=== PATIENT | female | born 1950 | race Caucasian/White ===

== ENCOUNTER 2017-03-23 10:10 | Emergency (ER) | payer MEDICARE, OTHER ==
[~2017-03-23] VITALS: Ht 162.6 cm; Wt 70.8 kg
--- NOTE | ~2017-03-23 | EKG ---
PATIENT: YVONNE GALINDO UNIT #: [id number] Ventricular Rate: 89 BPM Atrial Rate: 89 BPM P-R Interval: 150 ms QRS Duration: 90 ms Q-T Interval: 428 ms QTC Calculation(Bezet): 520 ms P [place]: 16 degrees Calculated R [place]: 0 degrees Calculated T [place]: -10 degrees Diagnosis Line: Sinus rhythm with occasional Premature ventricular Diagnosis Line: complexes Diagnosis Line: Possible Left atrial enlargement Diagnosis Line: Left ventricular hypertrophy Diagnosis Line: Nonspecific T wave abnormality Diagnosis Line: Prolonged QT Diagnosis Line: Abnormal ECG Diagnosis Line: When compared with ECG of 16-JAN-2016 10:01, Diagnosis Line: Premature ventricular complexes are now Present Diagnosis Line: T wave inversion no longer evident in Inferior Diagnosis Line: leads Diagnosis Line: QT has lengthened Diagnosis Line: Confirmed by DAISHA CARVAJAL MD ([id number]) on Diagnosis Line: 03/26/2017 11:18:16 AM INTERPRETING MD: ALENA SIEGEL
--- NOTE | ~2017-03-23 | CR63 ---
[facility] A Service of [facility] RADIOLOGY TEXT RESULTS PATIENT: YVONNE GALINDO LOCATION: SED : 48 UNIT #: [id number] AGE: [address]: Kacy Thompson MD SEX: F ORDER DR: [id number] [address] [address] [id number] MR#: [id number] Acc #: [id number] NAME: YVONNE GALINDO : 1950 SEX: F STUDY DATE/TIME: 03/23/2017 10:39 UNIT: SED ROOM: STUDY DESCRIPTION: CR Chest 2 View Attending Physician: Kacy Thompson M.D. Ordering Physician: Kacy Thompson M.D. Primary Care Physician: Eddie Dorsey M.D. MEDICAL IMAGING REPORT This report is preliminary unless electronic signature is present. EXAM Two-view chest, 03/23/2017 INDICATION 66-year-old female with cough, difficulty breathing since 11 o'clock last night, tobacco abuse 40 years. TECHNIQUE Two-view chest COMPARISON 01/16/2016 FINDINGS The heart is enlarged. This may reflect interval development of true cardiomegaly or a pericardial effusion. Indistinctness of the interstitium may reflect some very mild vascular congestion. There is no effusion or dense consolidation. There are patchy opacities in the left lung partially obscuring the left heart border also seen on the lateral view suspicious for lingular pneumonia. There is partial obscuration at the right heart border which may also reflect a right middle lobe component as well. Followup to clearing after appropriate therapy is recommended. There is no pneumothorax. IMPRESSION 1. Interval development of cardiomegaly which may represent true cardiomegaly or a pericardial effusion. 2. Probable mild vascular congestion. 3. Opacities in the lingula and perhaps also in the right middle lobe suspicious for pneumonia. Followup to clearing recommended. [facility] A Service [facility] RADIOLOGY TEXT RESULTS PATIENT: YVONNE GALINDO LOCATION: SED : 48 UNIT #: [id number] AGE: [address]: Kacy Thompson MD SEX: F ORDER DR: STAT * RESULT Dictated by... Srinivas Moran M.D. THIS IS AN ELECTRONICALLY VERIFIED REPORT Srinivas Moran M.D. at 03/23/2017 2:52 PM Shady TD: 03/23/2017 11:14 JOB #: [id number] MEDICAL IMAGING REPORT Page 1 of 1
[~2017-03-23 10:10] MED LIST: AMARYL PO; ASPIRIN81 M2 PO; BACTRIM DS TABL1 TA1; BACTRIM DS TABL1 TA2; CIPRO PO; CITRACAL200 MG PO; DICLOFENAC SODI50 MG PO; DIGOX0.25 MG PO; FLEXERIL10 MG PO; GARLIC OIL1 CAP PO; HYDROCODON-ACE1 EAC7 PO; LEVOXYL88 MC1 PO; MEDROL DOSEPAK4 MG PO; METFORMIN HCL500 M1 PO; MOBIC15 MG PO; NORCO1 TAB 10/3 PO; PERCOCET 5-3251 TAB; PRAVACHOL80 MG PO; PREDNISONE PO; ROBAXIN; ROBAXIN500 MG PO; SYNTHROID88 MCG PO
[2017-03-23] MEDS ORDERED: CRESTOR PO (10:17)
[2017-03-23] MEDS ORDERED: LISINOPRIL5 MG PO (10:18)
[2017-03-23 11:50] LABS: BASOPHIL% 0.6 % (0-2.5); DIFF IND NO; EOSINOPHIL# 0.1 X10e3 (0-0.7); EOSINOPHIL% 2.2 % (0.0-7.0); HEMATOCRIT 34.7 % (35.0-45.0); HEMOGLOBIN 11.7 gm/dL (12.0-16.0); LYMPHOCYTE# 1.2 X10e3 (1.0-3.5); LYMPHOCYTE% 18.2 % (17.0-45.0); MEAN CORPUSCULAR HGB CONC 33.7 g/dL (30-36); MEAN PLATELET VOLUME 8.5 FL (6.5-11.5); MONOCYTE# 0.5 X10e3 (0-1.0); MONOCYTE% 7.3 % (3.0-12.0); NEUTROPHIL# 4.6 X10e3 (1.5-7.1); NEUTROPHIL% 71.7 % (40-75); PLATELET COUNT 141 X10e3 (140-420); RED BLOOD COUNT 3.77 X10e (3.90-5.30); RED CELL DISTRIBUTION WIDTH 14.4 % (11.0-15.5); WHITE BLOOD COUNT 6.4 X10e3 (4.0-10.5)
[2017-03-23 12:10] LABS: BUN/CREATININE RATIO 21.81; CALCIUM SERUM 9.2 mg/dL (8.4-10.2); CREATININE SERUM 1.1 mg/dL (0.6-1.4); GLOM FILT RATE Estimated 51.6 mL/min (>60); POTASSIUM 3.6 mmol/L (3.5-5.1)
[2017-03-23] MEDS ORDERED: METFORMIN HCL1000 M1 PO (12:47)
[2017-03-23] MEDS ORDERED: CENTRUM SILVER PO (12:48)
[2017-03-23] MEDS ORDERED: VITAMIN D3400 UNI1 PO (12:49)
[2017-03-24 16:53] LABS: POC - CKMB 21.7 ng/mL (0.0-7.9); POC - TROPONIN 3.12 ng/mL (<=0.05)
[2017-03-24 16:58] LABS: POC - CKMB 16.7 ng/mL (0.0-7.9); POC - TROPONIN 3.64 ng/mL (<=0.05)
== END 2017-03-23 16:42 ==
LOC: SED 10:10
PROVIDERS: Student in an Organized Health Care Education/Training Program
DX: I21.4 Non-ST elevation (NSTEMI) myocardial infarction (principal); J18.9 Pneumonia, unspecified organism; I11.0 Hypertensive heart disease with heart failure; I50.9 Heart failure, unspecified; E03.9 Hypothyroidism, unspecified; E11.9 Type 2 diabetes mellitus without complications; F17.200 Nicotine dependence, unspecified, uncomplicated; Z98.51 Tubal ligation status; Z79.899 Other long term (current) drug therapy; Z79.82 Long term (current) use of aspirin; Z79.84 Long term (current) use of oral hypoglycemic drugs
CPT/HCPCS: 36415; 71020; 80048; 82553; 83874; 83880; 84484; 85025; 93005; 94640; 96365; 96372; 96375; 99291; J0696; J1650; J1940